=== PATIENT | male | born 1985 | race Caucasian/White ===

== ENCOUNTER 2017-07-11 08:27 | Emergency (ER) | payer SELFPAY ==
[~2017-07-11] VITALS: Ht 185.4 cm; Wt 91.0 kg
[2017-07-11 08:31] VITALS: BP 125/60; PULSE 76; RESP 18; TEMP 98; O2SAT 99
--- NOTE | 2017-07-11 09:05 | PD ---
HPI Chief Complaint: Syncope/Near-Syncope Time Seen by Provider: 08:52 Travel History International Travel<30 days: No Contact w/Intl Traveler<30days: No Traveled to known affect area: No History of Present Illness HPI 32-year-old male patient presents to the ER today because he states that he got up quickly off his bed, kicked something with his right leg, and had pain, and had a syncopal episode falling straight on his face. He is currently complaining of anterior jaw pain with a laceration to the lower lip. He denies any chest pains, shortness of breath, dizziness, or other injuries. He denies any previous history of syncope. Modifying Factors: None Associated Signs & Symptoms: Syncope, facial injuries Risk Factors: None PFSH Past Medical History Medical History: Denies Significant Hx Past Surgical History Surgical History: No Previous Surgery Social History Alcohol Use: No Tobacco Use: No Substance Use: Yes (THC) Allergies-Medications (Allergen,Severity, Reaction): Coded Allergies: No Known Allergies (Unverified , 07/11/17) Review of Systems Except as stated in HPI: all other systems reviewed are Neg Physical Exam Narrative GENERAL: Well-developed young male patient currently in mild distress. Awake and oriented 3. SKIN: Focused skin assessment warm/dry. HEAD: Atraumatic. Normocephalic. EYES: Pupils equal and round. No scleral icterus. No injection or drainage. ENT: No nasal bleeding or discharge. Mucous membranes pink and moist. There is tenderness palpation of the anterior mandible left of midline without obvious malalignment. There is a notable through and through 1 cm lower lip laceration. NECK: Trachea midline. No JVD. C-collar is placed in the ER. CARDIOVASCULAR: Regular rate and rhythm. No murmur appreciated. RESPIRATORY: No accessory muscle use. Clear to auscultation. Breath sounds equal bilaterally. GASTROINTESTINAL: Abdomen soft, non-tender, nondistended. Hepatic and splenic margins not palpable. MUSCULOSKELETAL: No obvious deformities. No clubbing. No cyanosis. No edema. NEUROLOGICAL: Awake and alert. No obvious cranial nerve deficits. Motor grossly within normal limits. Normal speech. PSYCHIATRIC: Appropriate mood and affect; insight and judgment normal. Data Data Last Documented VS Vital Signs Date Time Temp Pulse Resp B/P (MAP) Pulse Ox O2 Delivery O2 Flow Rate FiO2 07/11/17 08:31 98.0 76 18 125/60 (81) 99 Orders Orders Electrocardiogram (07/11/17 08:43) Complete Blood Count With Diff (07/11/17 08:43) Comprehensive Metabolic Panel (07/11/17 08:43) Magnesium (Mg) (07/11/17 08:43) Ckmb (Isoenzyme) Profile (07/11/17 08:43) Troponin I (07/11/17 08:43) Act Partial Throm Time (Ptt) (07/11/17 08:43) Prothrombin Time / Inr (Pt) (07/11/17 08:43) Urinalysis - C+S If Indicated (07/11/17 08:43) Chest, Single Ap (07/11/17 08:43) Ecg Monitoring (07/11/17 08:43) Iv Access Insert/Monitor (07/11/17 08:43) Oximetry (07/11/17 08:43) Drug Screen, Random Urine (07/11/17 08:43) Ct Brain W/O Iv Contrast(Rout) (07/11/17 08:52) Ct Cerv Spine W/O Contrast (07/11/17 08:52) Ct Facial Bones W/O Iv Cont (07/11/17 08:52) Tramadol-Acetamin 37.5-325 Mg (Ultracet (07/11/17 10:30) Lidocaine 1% Inj (50 Ml) (Xylocaine 1% I (07/11/17 11:15) Ed Discharge Order (07/11/17 11:57) MDM Medical Decision Making Medical Screen Exam Complete: Yes Emergency Medical Condition: Yes Medical Record Reviewed: Yes Interpretation(s) EKG shows NSR, no ST elevation or depression, and no arrhythmias. No significant T-wave inversions. No signs of QT prolongation or delta waves. Differential Diagnosis Syncope, facial injuries, lower lip laceration, mandible injury: Rule out fracture versus contusions versus intracranial injuries Narrative Course I have offered to give the patient tetanus shot, but he is refusing at this time , thinks he has had tetanus shot in the last 5 years. However, he is not able to tell me when he had the tetanus shot. He states he is very scared of needles , has also refused blood draws. I have explained to him that we are trying to evaluate his syncope and rule out electrolyte issues or other hematological issues that could be predisposing factors. But the patient is refusing. Lip laceration was sutured by my PA, please see PA notes for further details. Sutures are absorbable and do not have to be removed. Follow-up to primary care doctor. Return for any new issues as needed. Wound care instructions given. Diagnosis Primary Impression: Syncope Additional Impression: Laceration of lower lip, complicated Med/Other Pt SpecificInfo: Prescription(s) given Scripts Ibuprofen (Ibuprofen) 600 Mg Tab 600 MG PO Q6H Y for Pain/Inflammation, #20 TAB 0 Refills Prov: Jerica Wilkinson MD 07/11/17 Disposition: 01 DISCHARGE HOME Condition: Stable Jerica Wilkinson MD July 11, 2017 09:05
--- NOTE | 2017-07-11 09:25 | RADRPT ---
EXAM DATE: 07/11/2017 9:04 AM EDT AGE/SEX: 32 years / Male INDICATIONS: Palpitations CLINICAL DATA: This is the patient's initial encounter. Patient reports that signs and symptoms have been present for 1 day and indicates a pain score of 0/10. MEDICAL/SURGICAL HISTORY: None. None. COMPARISON: No prior [facility] exams available for comparison. FINDINGS: A single AP view of the chest demonstrates the lungs to be symmetrically aerated without evidence of mass, infiltrate or effusion. The cardiomediastinal contours are unremarkable. Osseous structures a re intact. CONCLUSION: No active disease. Electronically signed by: Vikram Alfaro MD 07/11/2017 9:24 AM EDT
--- NOTE | 2017-07-11 09:59 | RADRPT ---
EXAM DATE: 07/11/2017 9:54 AM EDT AGE/SEX: 32 years / Male INDICATIONS: Syncope with fall. CLINICAL DATA: This is the patient's initial encounter. Patient reports that signs and symptoms have been present for 1 day and indicates a pain score of 10/10. MEDICAL/SURGICAL HISTORY: None. None. RADIATION DOSE: 32.86 CTDI (mGy) COMPARISON: No prior [place] exams available for comparison. TECHNIQUE: CT of the head without contrast. Using automated exposure control and adjustment of the mA and/or kV according to patient size, radiation dose was kept as low as reasonably achievable to ob tain optimal diagnostic quality images. FINDINGS: No intracranial mass, hemorrhage or shift. No hydrocephalus. No abnormal extra-axial fluid collection s. No acute bony abnormalities. CONCLUSION: 1. No acute intracranial abnormalities. Electronically signed by: Vikram Alfaro MD 07/11/2017 9:58 AM EDT
--- NOTE | 2017-07-11 10:00 | RADRPT ---
EXAM DATE: 07/11/2017 9:55 AM EDT AGE/SEX: 32 years / Male INDICATIONS: Syncope with fall CLINICAL DATA: This is the patient's initial encounter. Patient reports that signs and symptoms have been present for 1 day and indicates a pain score of 10/10. MEDICAL/SURGICAL HISTORY: None. None. RADIATION DOSE: 14.96 CTDI (mGy) COMPARISON: No prior [facility] exams available for comparison. TECHNIQUE: Contiguous axial images were obtained using helical multirow detector technique. The vol umetric data was post-processed with multiplanar reconstruction in oblique axial, sagittal, and coron al planes. Using automated exposure control and adjustment of the mA and/or kV according to patient s ize, radiation dose was kept as low as reasonably achievable to obtain optimal diagnostic quality shira ges. FINDINGS: No fracture or spondylolisthesis. No prevertebral soft tissue swelling is present. Normal alignment. No canal or foraminal stenosis. CONCLUSION: 1. Negative cervical spine CT. Electronically signed by: Vikram Alfaro MD 07/11/2017 9:59 AM EDT
--- NOTE | 2017-07-11 10:19 | RADRPT ---
EXAM DATE: 07/11/2017 10:07 AM EDT AGE/SEX: 32 years / Male INDICATIONS: Syncope with fall. Jaw pain. CLINICAL DATA: This is the patient's initial encounter. Patient reports that signs and symptoms have been present for 1 day and indicates a pain score of 10/10. MEDICAL/SURGICAL HISTORY: None. None. RADIATION DOSE: 55.82 CTDI (mGy) COMPARISON: No prior [facility] exams available for comparison. TECHNIQUE: Contiguous images in the axial and coronal planes were obtained using helical multirow de tector technique. Using automated exposure control and adjustment of the mA and/or kV according to p atient size, radiation dose was kept as low as reasonably achievable to obtain optimal diagnostic piotr lity images. FINDINGS: Orbits: The orbital and infraorbital osseous structures are intact. The retroconal structures have a normal configuration. No radiopaque foreign bodies are seen. Nasal Bone: The nasal bone and maxillary spine are intact. Zygomatic Arches: Symmetric without evidence of fracture. Sinuses: The maxillary, ethmoid, and frontal sinuses are intact. No air-fluid levels seen. Nasal Cavity: The nasal septum is intact and midline. The lacrimal ducts are intact. Soft Tissues: No radiopaque foreign bodies seen. No soft-tissue swelling is seen. Intracranial: No intracranial air seen. Cribriform Plate: Grossly intact. CONCLUSION: 1. Mild soft tissue swelling is seen along the anterior mandible. 2. No evidence of acute fracture. 3. Intact temporomandibular joints. Electronically signed by: John Sandoval MD 07/11/2017 10:17 AM EDT
[2017-07-11] MEDS ORDERED: traMADol/ACETAMINOPHEN 37.5/325 1 TAB PO ONE (10:30)
[2017-07-11] MEDS ORDERED: LIDOCAINE HCL 1% 50 ML VIAL INFIL ONE (11:15)
--- NOTE | 2017-07-11 11:56 | PD ---
Data Data Last Documented VS Vital Signs Date Time Temp Pulse Resp B/P (MAP) Pulse Ox O2 Delivery O2 Flow Rate FiO2 07/11/17 08:31 98.0 76 18 125/60 (81) 99 Orders Orders Electrocardiogram (07/11/17 08:43) Complete Blood Count With Diff (07/11/17 08:43) Comprehensive Metabolic Panel (07/11/17 08:43) Magnesium (Mg) (07/11/17 08:43) Ckmb (Isoenzyme) Profile (07/11/17 08:43) Troponin I (07/11/17 08:43) Act Partial Throm Time (Ptt) (07/11/17 08:43) Prothrombin Time / Inr (Pt) (07/11/17 08:43) Urinalysis - C+S If Indicated (07/11/17 08:43) Chest, Single Ap (07/11/17 08:43) Ecg Monitoring (07/11/17 08:43) Iv Access Insert/Monitor (07/11/17 08:43) Oximetry (07/11/17 08:43) Drug Screen, Random Urine (07/11/17 08:43) Ct Brain W/O Iv Contrast(Rout) (07/11/17 08:52) Ct Cerv Spine W/O Contrast (07/11/17 08:52) Ct Facial Bones W/O Iv Cont (07/11/17 08:52) Tramadol-Acetamin 37.5-325 Mg (Ultracet (07/11/17 10:30) Lidocaine 1% Inj (50 Ml) (Xylocaine 1% I (07/11/17 11:15) MDM Medical Record Reviewed: Yes Supervised Visit with JOSE: No Narrative Course This patient presents with a laceration inferior to the lower lip that extends into the mouth. I was asked to repair. The patient verbally consents. Procedures Procedure Narrative LACERATION LOCATION: Inferior to lip LENGTH: 2 cm NUMBER OF STITCHES/CLARICE: 13 REPAIR: The area of the laceration was prepped with Betadine and sterilely draped. The laceration was infiltrated with 1% lidocaine. The wound was copiously irrigated and explored without evidence of foreign body, tendon injury or neurovascular injury. The wound was closed using 7 simple interrupted sutures of 5-0 fast-absorbing chromic were used to close the cutaneous layer and 6 simple interrupted sutures of 5-0 fast absorbing chromic to close the intraoral layer. This was a 2 layer repair. A sterile dressing was applied. The patient was advised to keep the dressing clean and dry. Patient tolerated the procedure well. Diagnosis Primary Impression: Syncope Additional Impression: Laceration of lower lip, complicated Jordan Wahl July 11, 2017 11:56
[2017-07-11] MEDS ORDERED: IBUP-232 PO (11:58)
--- NOTE | 2017-07-12 07:25 | EKG ---
Date Performed: 07/11/2017 Time Performed: 08:48:53 PTAGE: 32 years EKG: Sinus rhythm NONSPECIFIC T-WAVE ABNORMALITY BORDERLINE ECG NO PREVIOUS TRACING DOCTOR: Janine Domínguez Interpretating Date/Time 07/12/2017 07:21:19
== END 2017-07-11 12:15 | disposition home or self-care (01) ==
LOC: NEPE 08:27
DX: R55 Syncope and collapse (principal); S01.511A Laceration without foreign body of lip, initial encounter; R94.31 Abnormal electrocardiogram [ECG] [EKG]; W06.XXXA Fall from bed, initial encounter
CPT/HCPCS: 12051; 70450; 70486; 71045; 72125; 93005; 99285; L0150